=== PATIENT | male | born 1955 ===

== ENCOUNTER 2018-01-14 06:15 | Day surgery (SDC) | payer OTHER, SELFPAY ==
[~2018-01-14] VITALS: Ht 172.7 cm; Wt 103.4 kg
[~2018-01-14 06:15] MED LIST: AMOCLA875; Aspir 8181 MG; BENAML10/2 PO; CETI10; CIPR500; ESCI20 PO; ESCI5; GUAI600T33; GUAI600T33 PO; LORA.5; LORA.5 PO; LORA1; Lotrel 10-20 M1 EACH PO; METO25ER PO; MONT10T; NAPR220 PO; PROBIOTIC1 EAC1; Percocet 5-3251 EACH PO; TRAM50 PO; TRIA55OI; [UNRECOGNIZED DRUG - REMARK]
== END 2018-01-14 09:39 | disposition home or self-care (01) ==
LOC: ORSCMMR 06:15 → ORD 07:30 → ORSCMMR 07:30
PROVIDERS: Surgery
PROC: 0JH60WZ Insertion of Totally Implantable Vascular Access Device into Chest Subcutaneous Tissue and Fascia, Open Approach (ICD-10-PCS; principal; 2018-01-14 07:30)
DX: C67.8 Malignant neoplasm of overlapping sites of bladder (principal); C77.5 Secondary and unspecified malignant neoplasm of intrapelvic lymph nodes; C79.51 Secondary malignant neoplasm of bone; I10 Essential (primary) hypertension; E78.5 Hyperlipidemia, unspecified; F41.9 Anxiety disorder, unspecified; Z79.899 Other long term (current) drug therapy
CPT/HCPCS: 77001; C1788; J0690; J1100; J1642; J2001; J2250; J2405; J7120

== ENCOUNTER 2018-03-12 18:24 | Inpatient (IN) | payer OTHER, SELFPAY ==
[~2018-03-12] VITALS: Ht 177.8 cm; Wt 101.2 kg
[2018-03-12 19:10] LABS: Calcium, Ionized (POC) 0.73 mmol/L (1.10-1.46); Chloride (POC) 95 mmol/L (98-108); Creatinine (POC) 1.2 mg/dL (0.8-1.3); Glucose (ISTAT POC) 95 mg/dL (70-99); Hemoglobin (POC) 9.5 g/dL (13.5-17.5); Potassium (POC) 4.2 mmol/L (3.5-5.5); Sodium (POC) 138 mmol/L (135-148); Total CO2 (POC) 28 mmol/L (21-32)
[2018-03-12] MEDS ORDERED: [UNRECOGNIZED DRUG - REMARK] BOTHEYES (22:47)
[2018-03-13 05:54] LABS: Anion Gap 8 mmol/L (6-16); Blood Urea Nitrogen 21 mg/dL (8-24); Bun/Creatinine Ratio 22.2 (12.0-20.0); CO2, Blood 27 mmol/L (21-32); Calcium, Blood 6.1 mg/dL (8.5-10.1); Chloride, Blood 104 mmol/L (98-108); Creatinine, Blood 0.95 mg/dL (0.60-1.20); Glomerular Filtration Rate >60 (60-); Glucose, Blood 97 mg/dL (70-99); Potassium, Blood 4.3 mmol/L (3.5-5.5); Sodium, Blood 139 mmol/L (136-145)
[2018-03-13 06:44] LABS: Magnesium, Blood 1.7 mg/dL (1.6-2.4)
[2018-03-13 06:49] LABS: Alanine Aminotransfer (ALT/SGP 21 U/L (12-78); Albumin, Blood 2.6 g/dL (3.4-5.0); Albumin/Globulin Ratio 0.6 (0.8-1.8); Alk Phos 95 U/L (50-136); Anion Gap 7 mmol/L (6-16); Aspartate Aminotrans (AST/SGOT 18 U/L (12-37); Bilirubin, Total 0.2 mg/dL (0.1-1.0); Blood Urea Nitrogen 20 mg/dL (8-24); Bun/Creatinine Ratio 21.3 (12.0-20.0); CO2, Blood 29 mmol/L (21-32); Calcium, Blood 5.8 mg/dL (8.5-10.1); Chloride, Blood 105 mmol/L (98-108); Creatinine, Blood 0.94 mg/dL (0.60-1.20); Globulin, Blood 4.1 g/dL (2.2-4.0); Glomerular Filtration Rate >60 (60-); Glucose, Blood 100 mg/dL (70-99); Potassium, Blood 4.4 mmol/L (3.5-5.5); Sodium, Blood 141 mmol/L (136-145); Total Protein, Blood 6.7 g/dL (6.4-8.2)
[2018-03-13 09:13] LABS: RETIC HGB EQUIVALENT 38.1 pg (28.20-36.60); RETICULOCYTE COUNT PERCENT 0.29 % (0.50-2.50)
[2018-03-14 04:52] LABS: Hematocrit 26.9 % (37.0-53.0); Hemoglobin 8.5 g/dL (13.5-17.5)
[2018-03-14 05:32] LABS: Alanine Aminotransfer (ALT/SGP 19 U/L (12-78); Albumin, Blood 2.6 g/dL (3.4-5.0); Albumin/Globulin Ratio 0.6 (0.8-1.8); Alk Phos 105 U/L (50-136); Anion Gap 6 mmol/L (6-16); Aspartate Aminotrans (AST/SGOT 18 U/L (12-37); Bilirubin, Total 0.3 mg/dL (0.1-1.0); Blood Urea Nitrogen 25 mg/dL (8-24); Bun/Creatinine Ratio 26.3 (12.0-20.0); CO2, Blood 28 mmol/L (21-32); Calcium, Blood 6.8 mg/dL (8.5-10.1); Chloride, Blood 105 mmol/L (98-108); Creatinine, Blood 0.95 mg/dL (0.60-1.20); Globulin, Blood 4.4 g/dL (2.2-4.0); Glomerular Filtration Rate >60 (60-); Glucose, Blood 104 mg/dL (70-99); Magnesium, Blood 1.8 mg/dL (1.6-2.4); Potassium, Blood 4.4 mmol/L (3.5-5.5); Sodium, Blood 139 mmol/L (136-145)
[2018-03-14] MEDS ORDERED: CALCIUM 600 +1 EA11 PO (17:26)
[2018-03-14] MEDS ORDERED: Ferrous Sulfat325 M2 PO (17:27)
== END 2018-03-14 17:58 | disposition home or self-care (01) | DRG 641 ==
LOC: ER 18:24 → MEDS 20:30 → ENPENDDIS 03-14 17:35 → MEDS 03-14 17:58
PROVIDERS: Family Medicine; Hospitalist; Physician Assistant
DX: E83.51 Hypocalcemia (principal); E83.42 Hypomagnesemia; D64.9 Anemia, unspecified; I10 Essential (primary) hypertension; C61 Malignant neoplasm of prostate; C67.9 Malignant neoplasm of bladder, unspecified; M79.89 Other specified soft tissue disorders; M79.605 Pain in left leg; F17.200 Nicotine dependence, unspecified, uncomplicated; Z92.21 Personal history of antineoplastic chemotherapy; Z79.899 Other long term (current) drug therapy; Z93.3 Colostomy status
CPT/HCPCS: 36415; 80047; 80048; 80053; 82310; 82330; 83735; 85014; 85018; 85045; 93005; 93010; 93971; 96365; 99285-25; J0610; J3475; J7030

== ENCOUNTER 2018-03-26 11:44 | Emergency (ER) | payer OTHER, SELFPAY ==
[~2018-03-26] VITALS: Ht 175.3 cm; Wt 99.8 kg
[~2018-03-26 11:44] MED LIST changes: +CALCIUM 600 +1 EA11 PO; +Ferrous Sulfat325 M2 PO; +[UNRECOGNIZED DRUG - REMARK] BOTHEYES
[2018-03-26 12:37] LABS: BASOPHILS ABSOLUTE AUTO 0.03 K/mm3 (0.00-0.23); BASOPHILS PERCENT AUTO 0 % (0-2); EOSINOPHILS ABSOLUTE AUTO 0.15 K/mm3 (0.00-0.68); EOSINOPHILS PERCENT AUTO 2 % (0-6); Hematocrit 32.7 % (37.0-53.0); Hemoglobin 10.1 g/dL (13.5-17.5); IMMATURE GRAN ABSOLUTE AUTO 0.03 K/mm3 (0.00-0.10); IMMATURE GRAN PERCENT AUTO 0 % (0-1); LYMPHOCYTES ABSOLUTE AUTO 1.73 K/mm3 (0.84-5.20); LYMPHOCYTES PERCENT AUTO 24 % (21-46); MONOCYTES ABSOLUTE AUTO 0.69 K/mm3 (0.16-1.47); MONOCYTES PERCENT AUTO 10 % (4-13); Mean Corpuscular HGB 29.4 pg (26.0-34.0); Mean Corpuscular HGB Conc 30.9 g/dL (31.5-36.5); Mean Corpuscular Volume 95 fL (80-100); Mean Platelet Volume 9.5 fL (9.1-12.4); NEUTROPHILS ABSOLUTE AUTO 4.53 K/mm3 (1.96-9.15); NEUTROPHILS PERCENT AUTO 63 % (41-73); Platelet Count 421 K/mm3 (150-400); RDW Coefficient Variation 15.6 % (11.7-14.2); RDW Standard Deviation 54.2 fL (35.1-46.3); Red Blood Cell Count 3.44 M/mm3 (4.30-5.90); White Blood Cell Count 7.16 K/mm3 (4.00-11.30)
[2018-03-26 13:02] LABS: Alanine Aminotransfer (ALT/SGP 17 U/L (12-78); Albumin, Blood 3.1 g/dL (3.4-5.0); Albumin/Globulin Ratio 0.7 (0.8-1.8); Alk Phos 118 U/L (50-136); Anion Gap 9 mmol/L (6-16); Aspartate Aminotrans (AST/SGOT 12 U/L (12-37); Bilirubin, Total 0.3 mg/dL (0.1-1.0); Blood Urea Nitrogen 24 mg/dL (8-24); Bun/Creatinine Ratio 24.9 (12.0-20.0); CO2, Blood 26 mmol/L (21-32); Calcium, Blood 8.5 mg/dL (8.5-10.1); Chloride, Blood 107 mmol/L (98-108); Creatinine, Blood 0.96 mg/dL (0.60-1.20); Globulin, Blood 4.4 g/dL (2.2-4.0); Glomerular Filtration Rate >60 (60-); Glucose, Blood 120 mg/dL (70-99); Potassium, Blood 3.9 mmol/L (3.5-5.5); Sodium, Blood 142 mmol/L (136-145); Total Protein, Blood 7.5 g/dL (6.4-8.2); Troponin I <0.015 ng/mL (0.000-0.040)
== END 2018-03-26 14:30 | disposition home or self-care (01) ==
LOC: ER 11:44
PROVIDERS: Internal Medicine
DX: I49.3 Ventricular premature depolarization (principal); D64.9 Anemia, unspecified; I10 Essential (primary) hypertension; E78.5 Hyperlipidemia, unspecified; F32.9 Major depressive disorder, single episode, unspecified
CPT/HCPCS: 36415; 71046; 80053; 84484; 85025; 93005; 93010; 99285-25

== ENCOUNTER 2018-11-02 00:42 | Emergency (ER) | payer OTHER ==
[~2018-11-02] VITALS: Ht 177.8 cm; Wt 102.1 kg
[2018-11-02 02:39] LABS: Influenza A Negative (NEGATIVE); Influenza B Negative (NEGATIVE)
[2018-11-02 02:44] LABS: BASOPHILS ABSOLUTE AUTO 0.02 K/mm3 (0.00-0.23); BASOPHILS PERCENT AUTO 0 % (0-2); EOSINOPHILS ABSOLUTE AUTO 0.14 K/mm3 (0.00-0.68); EOSINOPHILS PERCENT AUTO 1 % (0-6); Hematocrit 25.8 % (37.0-53.0); Hemoglobin 7.8 g/dL (13.5-17.5); IMMATURE GRAN ABSOLUTE AUTO 0.08 K/mm3 (0.00-0.10); IMMATURE GRAN PERCENT AUTO 1 % (0-1); LYMPHOCYTES ABSOLUTE AUTO 1.42 K/mm3 (0.84-5.20); LYMPHOCYTES PERCENT AUTO 12 % (21-46); MONOCYTES ABSOLUTE AUTO 2.07 K/mm3 (0.16-1.47); MONOCYTES PERCENT AUTO 18 % (4-13); Mean Corpuscular HGB 28.9 pg (26.0-34.0); Mean Corpuscular HGB Conc 30.2 g/dL (31.5-36.5); Mean Corpuscular Volume 96 fL (80-100); Mean Platelet Volume 10.6 fL (9.1-12.4); NEUTROPHILS ABSOLUTE AUTO 8.09 K/mm3 (1.96-9.15); NEUTROPHILS PERCENT AUTO 68 % (41-73); NRBC ABSOLUTE 0.04 K/mm3 (0.00-0.02); NRBC Auto 0.3 /100 WBC (0.0-0.2); Platelet Count 69 K/mm3 (150-400); RDW Coefficient Variation 15.9 % (11.7-14.2); RDW Standard Deviation 55.1 fL (35.1-46.3); White Blood Cell Count 11.82 K/mm3 (4.00-11.30)
[2018-11-02 03:01] LABS: Alanine Aminotransfer (ALT/SGP 21 U/L (12-78); Albumin, Blood 2.7 g/dL (3.4-5.0); Albumin/Globulin Ratio 0.8 (0.8-1.8); Alk Phos 129 U/L (50-136); Anion Gap 8 mmol/L (6-16); Aspartate Aminotrans (AST/SGOT 20 U/L (12-37); Bilirubin, Total 0.3 mg/dL (0.1-1.0); Blood Urea Nitrogen 24 mg/dL (8-24); Bun/Creatinine Ratio 20.9 (12.0-20.0); CO2, Blood 26 mmol/L (21-32); Calcium, Blood 7.7 mg/dL (8.5-10.1); Chloride, Blood 106 mmol/L (98-108); Creatinine, Blood 1.15 mg/dL (0.60-1.20); Globulin, Blood 3.6 g/dL (2.2-4.0); Glomerular Filtration Rate >60 (60-); Glucose, Blood 124 mg/dL (70-99); Potassium, Blood 3.6 mmol/L (3.5-5.5); Sodium, Blood 140 mmol/L (136-145); Total Protein, Blood 6.3 g/dL (6.4-8.2)
[2018-11-02 03:09] LABS: Source, Urine Catheter
[2018-11-02 03:11] LABS: Appearance, Urine Cloudy (Clear); Bilirubin, Urine Neg (Neg); Blood, Urine 5+ (Neg); Color, Urine Yellow (P-Yellow); Glucose Qualitative, Urine Neg (Neg); Ketones, Urine Neg (Neg); Leukocyte Esterase, Urine 3+ (Neg); Nitrite, Urine Neg (Neg); Protein, Urine 3+ (Neg); Specific Gravity, Urine 1.015 (1.003-1.022); Urobilinogen, Urine NORM (Normal)
[2018-11-02 03:19] LABS: Bacteria Many /hpf; Red Blood Cells, Urine 0-2 /hpf (0-2); Squamous Epithelial Cells Not Seen /hpf (Few)
== END 2018-11-02 05:05 | disposition home or self-care (01) ==
LOC: ER 00:42
PROVIDERS: Emergency Medicine
DX: N39.0 Urinary tract infection, site not specified (principal); D64.9 Anemia, unspecified; D69.6 Thrombocytopenia, unspecified; C67.9 Malignant neoplasm of bladder, unspecified; Z88.8 Allergy status to other drugs, medicaments and biological substances; Z79.899 Other long term (current) drug therapy; I10 Essential (primary) hypertension; E78.5 Hyperlipidemia, unspecified; F32.9 Major depressive disorder, single episode, unspecified
CPT/HCPCS: 36415; 80053; 81001; 85025; 87077; 87086; 87186; 87804; 96365; 99283-25; J0696

== ENCOUNTER 2018-12-22 21:27 | Emergency (ER) | payer OTHER ==
[~2018-12-22] VITALS: Ht 175.3 cm; Wt 99.8 kg
[2018-12-22 22:03] LABS: BASOPHILS ABSOLUTE AUTO 0.02 K/mm3 (0.00-0.23); BASOPHILS PERCENT AUTO 0 % (0-2); EOSINOPHILS ABSOLUTE AUTO 0.32 K/mm3 (0.00-0.68); EOSINOPHILS PERCENT AUTO 5 % (0-6); Hematocrit 26.3 % (37.0-53.0); Hemoglobin 7.9 g/dL (13.5-17.5); Mean Corpuscular HGB 26.9 pg (26.0-34.0); Mean Corpuscular Volume 90 fL (80-100); Mean Platelet Volume 8.9 fL (9.1-12.4); Platelet Count 436 K/mm3 (150-400); RDW Coefficient Variation 17.3 % (11.7-14.2); RDW Standard Deviation 55.8 fL (35.1-46.3); Red Blood Cell Count 2.94 M/mm3 (4.30-5.90); White Blood Cell Count 6.82 K/mm3 (4.00-11.30)
[2018-12-22 22:04] LABS: IMMATURE GRAN ABSOLUTE AUTO 0.02 K/mm3 (0.00-0.10); IMMATURE GRAN PERCENT AUTO 0 % (0-1); LYMPHOCYTES ABSOLUTE AUTO 1.18 K/mm3 (0.84-5.20); LYMPHOCYTES PERCENT AUTO 17 % (21-46); MONOCYTES ABSOLUTE AUTO 0.07 K/mm3 (0.16-1.47); MONOCYTES PERCENT AUTO 1 % (4-13); NEUTROPHILS ABSOLUTE AUTO 5.21 K/mm3 (1.96-9.15); NEUTROPHILS PERCENT AUTO 76 % (41-73)
[2018-12-22 22:16] LABS: Albumin, Blood 2.7 g/dL (3.4-5.0); Albumin/Globulin Ratio 0.7 (0.8-1.8); Bilirubin, Total 0.4 mg/dL (0.1-1.0); Bun/Creatinine Ratio 16.7 (12.0-20.0); Calcium, Blood 7.5 mg/dL (8.5-10.1); Creatinine, Blood 1.44 mg/dL (0.60-1.20); Total Protein, Blood 6.7 g/dL (6.4-8.2)
[2018-12-22 23:37] LABS: Source, Urine Clean Catch
[2018-12-22 23:41] LABS: Bilirubin, Urine Neg (Neg); Blood, Urine 5+ (Neg); Glucose Qualitative, Urine Neg (Neg); Ketones, Urine Neg (Neg); Leukocyte Esterase, Urine 3+ (Neg); Nitrite, Urine Neg (Neg); Protein, Urine 4+ (Neg); Specific Gravity, Urine 1.015 (1.003-1.022); Urobilinogen, Urine NORM (Normal)
[2018-12-22 23:48] LABS: Appearance, Urine Cloudy (Clear); Color, Urine Yellow (P-Yellow)
[2018-12-22 23:56] LABS: Red Blood Cells, Urine TNTC /hpf (0-2); White Blood Cells, Urine TNTC /hpf (0-5)
[2018-12-22 23:57] LABS: Bacteria Mod /hpf; Squamous Epithelial Cells Not Seen /hpf (Few)
[2018-12-23] MEDS ORDERED: Keflex500 MG PO (01:45)
== END 2018-12-23 02:10 | disposition home or self-care (01) ==
LOC: ER 21:27
PROVIDERS: Emergency Medicine; Physician Assistant
DX: N39.0 Urinary tract infection, site not specified (principal); Z88.8 Allergy status to other drugs, medicaments and biological substances; Z79.899 Other long term (current) drug therapy; D64.9 Anemia, unspecified; I10 Essential (primary) hypertension; E78.5 Hyperlipidemia, unspecified; F32.9 Major depressive disorder, single episode, unspecified
CPT/HCPCS: 36415; 80053; 81001; 83605; 83735; 84145; 85025; 87040; 87077; 87086; 87186; 96361; 96365; 99283-25; J0696; J7030

== ENCOUNTER 2018-12-31 17:28 | Emergency (ER) | payer OTHER ==
[~2018-12-31] VITALS: Ht 177.8 cm; Wt 102.1 kg
[~2018-12-31 17:28] MED LIST changes: +Keflex500 MG PO
[2018-12-31] MEDS ORDERED: Norvasc10 MG PO (18:23)
[2018-12-31 18:27] LABS: BASOPHILS ABSOLUTE AUTO 0.03 K/mm3 (0.00-0.23); BASOPHILS PERCENT AUTO 0 % (0-2); EOSINOPHILS PERCENT AUTO 1 % (0-6); Hematocrit 25.5 % (37.0-53.0); Hemoglobin 7.8 g/dL (13.5-17.5); IMMATURE GRAN ABSOLUTE AUTO 0.33 K/mm3 (0.00-0.10); IMMATURE GRAN PERCENT AUTO 3 % (0-1); LYMPHOCYTES ABSOLUTE AUTO 1.51 K/mm3 (0.84-5.20); LYMPHOCYTES PERCENT AUTO 15 % (21-46); MONOCYTES PERCENT AUTO 2 % (4-13); Mean Corpuscular HGB 26.8 pg (26.0-34.0); Mean Corpuscular HGB Conc 30.6 g/dL (31.5-36.5); Mean Corpuscular Volume 88 fL (80-100); Mean Platelet Volume 9.2 fL (9.1-12.4); NEUTROPHILS ABSOLUTE AUTO 7.96 K/mm3 (1.96-9.15); NEUTROPHILS PERCENT AUTO 79 % (41-73); NRBC ABSOLUTE 0.03 K/mm3 (0.00-0.02); NRBC Auto 0.3 /100 WBC (0.0-0.2); Platelet Count 142 K/mm3 (150-400); RDW Coefficient Variation 17.4 % (11.7-14.2); Red Blood Cell Count 2.91 M/mm3 (4.30-5.90); White Blood Cell Count 10.13 K/mm3 (4.00-11.30)
[2018-12-31] MEDS ORDERED: OXYC5 PO (18:27)
[2018-12-31 18:43] LABS: Alanine Aminotransfer (ALT/SGP 44 U/L (12-78); Albumin, Blood 2.9 g/dL (3.4-5.0); Albumin/Globulin Ratio 0.7 (0.8-1.8); Alk Phos 204 U/L (50-136); Anion Gap 4 mmol/L (6-16); Aspartate Aminotrans (AST/SGOT 27 U/L (12-37); Bilirubin, Total 0.5 mg/dL (0.1-1.0); Blood Urea Nitrogen 18 mg/dL (8-24); Bun/Creatinine Ratio 18.5 (12.0-20.0); CO2, Blood 31 mmol/L (21-32); Calcium, Blood 8.3 mg/dL (8.5-10.1); Chloride, Blood 103 mmol/L (98-108); Creatinine, Blood 0.97 mg/dL (0.60-1.20); Globulin, Blood 4.2 g/dL (2.2-4.0); Glomerular Filtration Rate >60 (60-); Glucose, Blood 120 mg/dL (70-99); Potassium, Blood 3.8 mmol/L (3.5-5.5); Sodium, Blood 138 mmol/L (136-145); Total Protein, Blood 7.1 g/dL (6.4-8.2)
[2018-12-31 18:45] LABS: International Normalized Ratio 1.01; Prothrombin Time Results 10.7 Sec (9.7-11.5)
[2018-12-31] MEDS ORDERED: Percocet 5-3251 EACH PO (19:21)
[2018-12-31] MEDS ORDERED: XARELTO15 MG PO (19:21)
== END 2018-12-31 19:53 | disposition home or self-care (01) ==
LOC: ER 17:28
PROVIDERS: Emergency Medicine
DX: I82.401 Acute embolism and thrombosis of unspecified deep veins of right lower extremity (principal); I10 Essential (primary) hypertension; F32.9 Major depressive disorder, single episode, unspecified; E78.5 Hyperlipidemia, unspecified; Z85.51 Personal history of malignant neoplasm of bladder; D64.9 Anemia, unspecified; Z85.46 Personal history of malignant neoplasm of prostate
CPT/HCPCS: 36415; 80053; 85025; 85610; 85730; 93005; 93010; 93971; 99284-25

== ENCOUNTER 2019-01-07 07:44 | Day surgery (SDC) | payer OTHER ==
[~2019-01-07 07:44] MED LIST changes: +Norvasc10 MG PO; +OXYC5 PO; +XARELTO15 MG PO
[2019-01-07] MEDS ORDERED: LEVOFLOXACIN750 MG PO (14:07)
[2019-01-07] MEDS ORDERED: Coumadin2 MG PO (14:08)
== END 2019-01-07 16:00 | disposition home or self-care (01) ==
LOC: ATC 07:44
DX: C22.8 Malignant neoplasm of liver, primary, unspecified as to type (principal); C67.8 Malignant neoplasm of overlapping sites of bladder; I10 Essential (primary) hypertension; F41.9 Anxiety disorder, unspecified; E78.5 Hyperlipidemia, unspecified; Z88.8 Allergy status to other drugs, medicaments and biological substances; Z87.891 Personal history of nicotine dependence; Z79.899 Other long term (current) drug therapy; D63.0 Anemia in neoplastic disease; C77.5 Secondary and unspecified malignant neoplasm of intrapelvic lymph nodes; C79.51 Secondary malignant neoplasm of bone
CPT/HCPCS: 36430; 86850; 86900; 86901; 86923; J1642; J7050; P9016

== ENCOUNTER 2019-01-17 10:06 | Emergency (ER) | payer OTHER ==
[~2019-01-17] VITALS: Ht 175.3 cm; Wt 104.3 kg
[~2019-01-17 10:06] MED LIST changes: +Coumadin2 MG PO; +LEVOFLOXACIN750 MG PO
[2019-01-17 12:33] LABS: BASOPHILS ABSOLUTE AUTO 0.03 K/mm3 (0.00-0.23); BASOPHILS PERCENT AUTO 0 % (0-2); EOSINOPHILS ABSOLUTE AUTO 0.01 K/mm3 (0.00-0.68); EOSINOPHILS PERCENT AUTO 0 % (0-6); Hematocrit 25.4 % (37.0-53.0); Hemoglobin 7.7 g/dL (13.5-17.5); IMMATURE GRAN ABSOLUTE AUTO 0.14 K/mm3 (0.00-0.10); IMMATURE GRAN PERCENT AUTO 1 % (0-1); LYMPHOCYTES ABSOLUTE AUTO 0.97 K/mm3 (0.84-5.20); LYMPHOCYTES PERCENT AUTO 9 % (21-46); MONOCYTES ABSOLUTE AUTO 1.34 K/mm3 (0.16-1.47); MONOCYTES PERCENT AUTO 13 % (4-13); Mean Corpuscular HGB 26.3 pg (26.0-34.0); Mean Corpuscular HGB Conc 30.3 g/dL (31.5-36.5); Mean Corpuscular Volume 87 fL (80-100); Mean Platelet Volume 8.4 fL (9.1-12.4); NEUTROPHILS ABSOLUTE AUTO 7.79 K/mm3 (1.96-9.15); NEUTROPHILS PERCENT AUTO 76 % (41-73); NRBC ABSOLUTE 0.02 K/mm3 (0.00-0.02); NRBC Auto 0.2 /100 WBC (0.0-0.2); Platelet Count 535 K/mm3 (150-400); RDW Coefficient Variation 17.9 % (11.7-14.2); RDW Standard Deviation 56.8 fL (35.1-46.3); Red Blood Cell Count 2.93 M/mm3 (4.30-5.90); White Blood Cell Count 10.28 K/mm3 (4.00-11.30)
[2019-01-17 12:45] LABS: International Normalized Ratio 2.58; Prothrombin Time Results 25.1 Sec (9.7-11.5)
[2019-01-17 12:47] LABS: Alanine Aminotransfer (ALT/SGP 14 U/L (12-78); Albumin, Blood 2.3 g/dL (3.4-5.0); Albumin/Globulin Ratio 0.5 (0.8-1.8); Alk Phos 147 U/L (50-136); Anion Gap 5 mmol/L (6-16); Aspartate Aminotrans (AST/SGOT 18 U/L (12-37); Bilirubin, Total 0.3 mg/dL (0.1-1.0); Blood Urea Nitrogen 20 mg/dL (8-24); Bun/Creatinine Ratio 20.3 (12.0-20.0); CO2, Blood 31 mmol/L (21-32); Calcium, Blood 8.6 mg/dL (8.5-10.1); Chloride, Blood 102 mmol/L (98-108); Creatinine, Blood 0.98 mg/dL (0.60-1.20); Globulin, Blood 4.6 g/dL (2.2-4.0); Glomerular Filtration Rate >60 (60-); Glucose, Blood 143 mg/dL (70-99); Potassium, Blood 3.9 mmol/L (3.5-5.5); Sodium, Blood 138 mmol/L (136-145); Total Protein, Blood 6.9 g/dL (6.4-8.2); Troponin I <0.015 ng/mL (0.000-0.040)
[2019-01-17] MEDS ORDERED: LIDO700A20 TOP (13:40)
== END 2019-01-17 17:44 | disposition home or self-care (01) ==
LOC: ER 10:06
PROVIDERS: Emergency Medicine
DX: C61 Malignant neoplasm of prostate (principal); C67.9 Malignant neoplasm of bladder, unspecified; R06.00 Dyspnea, unspecified; I82.401 Acute embolism and thrombosis of unspecified deep veins of right lower extremity; D64.9 Anemia, unspecified; I10 Essential (primary) hypertension; E78.5 Hyperlipidemia, unspecified; F32.9 Major depressive disorder, single episode, unspecified; Z88.8 Allergy status to other drugs, medicaments and biological substances; Z79.01 Long term (current) use of anticoagulants; Z79.899 Other long term (current) drug therapy
CPT/HCPCS: 36415; 36430; 71260; 80053; 84484; 85025; 85610; 85730; 86850; 86900; 86901; 86923; 93005; 93010; 96374-59; 99285-25; J2405; J3010; J7030; P9016; Q9967

== ENCOUNTER → 2019-01-23 | Outpatient (CLI) | payer OTHER ==
[~2019-01-23] MED LIST changes: +ACET325 PO; +BISA5EC PO; +CEPH500 PO; +FERSU300 PO; +FLUC200 PO; +FURO20 PO; +FUROSEMIDE20 MG PO; +GAVILAX17 GM PO; +LIDO700A20 TOP; +LIDOCAINE PAIN1 EACH TOP; +MEGESTROL400 MG/10 PO; +METO10 PO; +OMEP20ER PO; +ONDA8 PO; +OXYC10ER PO; +POTA10T PO; +SENNA-TIME S T1 EACH PO
== END ==
LOC: LAB 17:58 → LAB SHORT 17:58
DX: N39.0 Urinary tract infection, site not specified (principal)
CPT/HCPCS: 87077; 87086; 87186

== ENCOUNTER 2019-02-19 08:02 | Day surgery (SDC) | payer OTHER ==
[~2019-02-19 08:02] MED LIST changes: -ACET325 PO; -BISA5EC PO; -CEPH500 PO; -FERSU300 PO; -FLUC200 PO; -FURO20 PO; -FUROSEMIDE20 MG PO; -GAVILAX17 GM PO; -LIDOCAINE PAIN1 EACH TOP; -MEGESTROL400 MG/10 PO; -METO10 PO; -OMEP20ER PO; -ONDA8 PO; -OXYC10ER PO; -POTA10T PO; -SENNA-TIME S T1 EACH PO
== END 2019-02-19 10:15 | disposition home or self-care (01) ==
LOC: ATC 08:02 → LAB 08:02 → ATC 10:15 → LAB 17:33
DX: C67.8 Malignant neoplasm of overlapping sites of bladder (principal)
CPT/HCPCS: 36430; 86850; 86900; 86901; 86923; J1642; J7050; P9016

== ENCOUNTER 2019-02-22 19:13 | Emergency (ER) | payer OTHER ==
[~2019-02-22] VITALS: Ht 177.8 cm; Wt 98.9 kg
[2019-02-22] MEDS ORDERED: FURO20 PO (20:11)
[2019-02-22] MEDS ORDERED: POTA10T PO (20:12)
[2019-02-22] MEDS ORDERED: SENNA-TIME S T1 EACH PO (20:12)
[2019-02-22] MEDS ORDERED: ONDA8 PO (20:13)
[2019-02-22] MEDS ORDERED: OMEP20ER PO (20:13)
[2019-02-22 21:12] LABS: BASOPHILS ABSOLUTE AUTO 0.02 K/mm3 (0.00-0.23); BASOPHILS PERCENT AUTO 0 % (0-2); EOSINOPHILS ABSOLUTE AUTO 0.02 K/mm3 (0.00-0.68); EOSINOPHILS PERCENT AUTO 0 % (0-6); Hematocrit 25.2 % (37.0-53.0); Hemoglobin 7.5 g/dL (13.5-17.5); IMMATURE GRAN ABSOLUTE AUTO 0.09 K/mm3 (0.00-0.10); IMMATURE GRAN PERCENT AUTO 1 % (0-1); LYMPHOCYTES ABSOLUTE AUTO 0.66 K/mm3 (0.84-5.20); LYMPHOCYTES PERCENT AUTO 7 % (21-46); MONOCYTES ABSOLUTE AUTO 1.16 K/mm3 (0.16-1.47); MONOCYTES PERCENT AUTO 12 % (4-13); Mean Corpuscular HGB Conc 29.8 g/dL (31.5-36.5); Mean Corpuscular Volume 81 fL (80-100); Mean Platelet Volume 9.2 fL (9.1-12.4); NEUTROPHILS ABSOLUTE AUTO 7.45 K/mm3 (1.96-9.15); NEUTROPHILS PERCENT AUTO 79 % (41-73); Platelet Count 310 K/mm3 (150-400); RDW Coefficient Variation 20.8 % (11.7-14.2); Red Blood Cell Count 3.13 M/mm3 (4.30-5.90)
[2019-02-22 21:24] LABS: Alanine Aminotransfer (ALT/SGP 9 U/L (12-78); Albumin/Globulin Ratio 0.4 (0.8-1.8); Alk Phos 146 U/L (50-136); Anion Gap 8 mmol/L (6-16); Aspartate Aminotrans (AST/SGOT 20 U/L (12-37); Bilirubin, Total 0.5 mg/dL (0.1-1.0); Blood Urea Nitrogen 20 mg/dL (8-24); Bun/Creatinine Ratio 20.6 (12.0-20.0); CO2, Blood 29 mmol/L (21-32); Calcium, Blood 7.8 mg/dL (8.5-10.1); Chloride, Blood 102 mmol/L (98-108); Creatinine, Blood 0.97 mg/dL (0.60-1.20); Globulin, Blood 5.1 g/dL (2.2-4.0); Glomerular Filtration Rate >60 (60-); Glucose, Blood 127 mg/dL (70-99); Potassium, Blood 3.5 mmol/L (3.5-5.5); Sodium, Blood 139 mmol/L (136-145); Total Protein, Blood 7.1 g/dL (6.4-8.2)
[2019-02-22 21:35] LABS: Source, Urine Urostomy Bag
[2019-02-22 21:37] LABS: Bilirubin, Urine Neg (Neg); Blood, Urine 4+ (Neg); Glucose Qualitative, Urine Neg (Neg); Ketones, Urine 1+ (Neg); Leukocyte Esterase, Urine 3+ (Neg); Nitrite, Urine Neg (Neg); Protein, Urine 2+ (Neg); Urobilinogen, Urine 1+ (Normal); pH, Urine 6.5 (5.0-8.0)
[2019-02-22 21:43] LABS: Appearance, Urine Hazy (Clear); Color, Urine Amber (P-Yellow)
[2019-02-22 21:44] LABS: Bacteria Many /hpf; Mucus Light (0-Heavy); Squamous Epithelial Cells Not Seen /hpf (Few); White Blood Cells, Urine 50-100 /hpf (0-5)
[2019-02-22 21:45] LABS: Hyaline Casts 0-2 /lpf (0-2)
[2019-02-22] MEDS ORDERED: CEPH500 PO (23:52)
== END 2019-02-23 00:20 | disposition home or self-care (01) ==
LOC: ER 19:13
PROVIDERS: Emergency Medicine
DX: N12 Tubulo-interstitial nephritis, not specified as acute or chronic (principal); D64.9 Anemia, unspecified; R41.0 Disorientation, unspecified; I10 Essential (primary) hypertension; E78.5 Hyperlipidemia, unspecified; F32.9 Major depressive disorder, single episode, unspecified; Z88.8 Allergy status to other drugs, medicaments and biological substances; Z79.899 Other long term (current) drug therapy; Z79.01 Long term (current) use of anticoagulants
CPT/HCPCS: 36415; 70450; 71046; 80053; 81001; 83605; 85025; 87040; 87077; 87086; 87186; 93005; 93010; 96365; 96366; 99285-25; J0696

== ENCOUNTER 2019-03-07 14:10 | Emergency (ER) | payer OTHER ==
[~2019-03-07] VITALS: Ht 177.8 cm; Wt 92.1 kg
[~2019-03-07 14:10] MED LIST changes: +CEPH500 PO; +FURO20 PO; +OMEP20ER PO; +ONDA8 PO; +POTA10T PO; +SENNA-TIME S T1 EACH PO
[2019-03-07 14:48] LABS: BASOPHILS ABSOLUTE AUTO 0.02 K/mm3 (0.00-0.23); BASOPHILS PERCENT AUTO 0 % (0-2); EOSINOPHILS ABSOLUTE AUTO 0.03 K/mm3 (0.00-0.68); EOSINOPHILS PERCENT AUTO 0 % (0-6); Hematocrit 24.1 % (37.0-53.0); IMMATURE GRAN ABSOLUTE AUTO 0.09 K/mm3 (0.00-0.10); IMMATURE GRAN PERCENT AUTO 1 % (0-1); LYMPHOCYTES ABSOLUTE AUTO 0.66 K/mm3 (0.84-5.20); LYMPHOCYTES PERCENT AUTO 6 % (21-46); MONOCYTES ABSOLUTE AUTO 0.94 K/mm3 (0.16-1.47); MONOCYTES PERCENT AUTO 9 % (4-13); Mean Corpuscular HGB 23.6 pg (26.0-34.0); Mean Corpuscular Volume 81 fL (80-100); Mean Platelet Volume 8.9 fL (9.1-12.4); NEUTROPHILS ABSOLUTE AUTO 8.55 K/mm3 (1.96-9.15); NEUTROPHILS PERCENT AUTO 83 % (41-73); NRBC ABSOLUTE 0.03 K/mm3 (0.00-0.02); NRBC Auto 0.3 /100 WBC (0.0-0.2); Platelet Count 382 K/mm3 (150-400); RDW Coefficient Variation 21.7 % (11.7-14.2); RDW Standard Deviation 63.6 fL (35.1-46.3); Red Blood Cell Count 2.96 M/mm3 (4.30-5.90); White Blood Cell Count 10.29 K/mm3 (4.00-11.30)
[2019-03-07 15:00] LABS: International Normalized Ratio 1.54; Prothrombin Time Results 15.7 Sec (9.7-11.5)
[2019-03-07 15:05] LABS: Albumin/Globulin Ratio 0.4 (0.8-1.8); Bilirubin, Total 0.4 mg/dL (0.1-1.0); Bun/Creatinine Ratio 17.3 (12.0-20.0); Calcium, Blood 8.1 mg/dL (8.5-10.1); Creatinine, Blood 1.33 mg/dL (0.60-1.20); Globulin, Blood 5.5 g/dL (2.2-4.0); Potassium, Blood 4.4 mmol/L (3.5-5.5); Total Protein, Blood 7.5 g/dL (6.4-8.2)
[2019-03-07 15:57] LABS: Source, Urine Clean Catch
[2019-03-07 16:05] LABS: Bilirubin, Urine Neg (Neg); Blood, Urine Neg (Neg); Glucose Qualitative, Urine Neg (Neg); Ketones, Urine Neg (Neg); Leukocyte Esterase, Urine 1+ (Neg); Nitrite, Urine Neg (Neg); Protein, Urine 2+ (Neg); Specific Gravity, Urine 1.015 (1.003-1.022); Urobilinogen, Urine 1+ (Normal)
[2019-03-07 16:12] LABS: Appearance, Urine Turbid (Clear); Color, Urine Yellow (P-Yellow)
[2019-03-07 16:18] LABS: Red Blood Cells, Urine 0-2 /hpf (0-2); Triple Phosphate Crystals Mod /hpf
[2019-03-07 16:19] LABS: Bacteria Many /hpf; Squamous Epithelial Cells Not Seen /hpf (Few)
[2019-03-07] MEDS ORDERED: CEPH500 PO (16:42)
== END 2019-03-07 17:46 | disposition home or self-care (01) ==
LOC: ER 14:10
PROVIDERS: Physician Assistant
DX: N39.0 Urinary tract infection, site not specified (principal); C61 Malignant neoplasm of prostate; C67.9 Malignant neoplasm of bladder, unspecified; D64.9 Anemia, unspecified; I10 Essential (primary) hypertension; F32.9 Major depressive disorder, single episode, unspecified; Z88.8 Allergy status to other drugs, medicaments and biological substances; Z79.01 Long term (current) use of anticoagulants; Z79.899 Other long term (current) drug therapy
CPT/HCPCS: 36415; 70450; 80053; 81001; 84484; 85025; 85610; 87086; 93005; 93010; 96361; 96365; 96375; 99285-25; J0696; J2405; J7030

== ENCOUNTER 2019-03-14 16:19 | Observation (INO) | payer OTHER ==
[~2019-03-14] VITALS: Ht 175.3 cm; Wt 91.3 kg
[2019-03-14 17:28] LABS: BASOPHILS ABSOLUTE AUTO 0.03 K/mm3 (0.00-0.23); BASOPHILS PERCENT AUTO 0 % (0-2); EOSINOPHILS ABSOLUTE AUTO 0.01 K/mm3 (0.00-0.68); EOSINOPHILS PERCENT AUTO 0 % (0-6); Hematocrit 21.8 % (37.0-53.0); Hemoglobin 6.3 g/dL (13.5-17.5); IMMATURE GRAN ABSOLUTE AUTO 0.08 K/mm3 (0.00-0.10); IMMATURE GRAN PERCENT AUTO 1 % (0-1); LYMPHOCYTES ABSOLUTE AUTO 0.52 K/mm3 (0.84-5.20); LYMPHOCYTES PERCENT AUTO 5 % (21-46); MONOCYTES ABSOLUTE AUTO 0.89 K/mm3 (0.16-1.47); MONOCYTES PERCENT AUTO 9 % (4-13); Mean Corpuscular HGB Conc 28.9 g/dL (31.5-36.5); Mean Corpuscular Volume 83 fL (80-100); Mean Platelet Volume 8.6 fL (9.1-12.4); NEUTROPHILS ABSOLUTE AUTO 8.38 K/mm3 (1.96-9.15); NEUTROPHILS PERCENT AUTO 85 % (41-73); NRBC ABSOLUTE 0.03 K/mm3 (0.00-0.02); NRBC Auto 0.3 /100 WBC (0.0-0.2); Platelet Count 341 K/mm3 (150-400); RDW Coefficient Variation 22.4 % (11.7-14.2); RDW Standard Deviation 66.8 fL (35.1-46.3); Red Blood Cell Count 2.63 M/mm3 (4.30-5.90); White Blood Cell Count 9.91 K/mm3 (4.00-11.30)
[2019-03-14 17:49] LABS: Alanine Aminotransfer (ALT/SGP 9 U/L (12-78); Albumin, Blood 1.7 g/dL (3.4-5.0); Albumin/Globulin Ratio 0.3 (0.8-1.8); Alk Phos 169 U/L (50-136); Anion Gap 4 mmol/L (6-16); Aspartate Aminotrans (AST/SGOT 20 U/L (12-37); Bilirubin, Total 0.5 mg/dL (0.1-1.0); Blood Urea Nitrogen 20 mg/dL (8-24); Bun/Creatinine Ratio 24.5 (12.0-20.0); CO2, Blood 29 mmol/L (21-32); Calcium, Blood 7.9 mg/dL (8.5-10.1); Chloride, Blood 103 mmol/L (98-108); Creatinine, Blood 0.82 mg/dL (0.60-1.20); Globulin, Blood 4.9 g/dL (2.2-4.0); Glomerular Filtration Rate >60 (60-); Glucose, Blood 125 mg/dL (70-99); Magnesium, Blood 1.8 mg/dL (1.6-2.4); Potassium, Blood 4.1 mmol/L (3.5-5.5); Sodium, Blood 136 mmol/L (136-145); Total Protein, Blood 6.6 g/dL (6.4-8.2)
[2019-03-14] MEDS ORDERED: OXYC5 PO (21:38)
[2019-03-14 23:46] LABS: IMMATURE RETIC FRACTION 36.2 % (2.3-16.0); RETICULOCYTE ABSOLUTE 0.0632 M/mm3 (0.0200-0.1100); RETICULOCYTE COUNT PERCENT 2.42 % (0.50-2.50)
[2019-03-14 23:58] LABS: International Normalized Ratio 0.92; Prothrombin Time Results 9.8 Sec (9.7-11.5)
[2019-03-15 00:07] LABS: Percent Saturation 18.9 % (20.0-50.0)
--- NOTE | 2019-03-15 02:56 | NUR ---
PCU ADMIT PT BROUGHT TO PCU RM 04 FROM THE ER BY YSABEL @ APPROX 0030 W/ PT'S ACCOMPANYING. PT C/O BACK PAIN, SLID OVER FROM ER YSABEL TO PCU BED BY 4 STAFF. PT BROUGHT TO UNIT W/ BLOOD TRANSFUSING VIA MEDIPORT, REPORTED BY ER TO BE 2ND UNIT PRBC'S ADMINISTERED. PT A&O X4. VSS. LUNG SOUNDS CLEAR, SPO2 > 92% ON RA. MONITOR SHOWS NSR/ST, HR 90-110. UROSTOMY TO RLQ DRAINING DARK YELLOW URINE. STOOL SAMPLE TO BE COLLECTED WHEN PT ABLE TO HAVE BM. PT CONCERNED ABOUT NOT TAKING COUMADIN DOSE FOR 03/14, CALL TO MD BRIGHT W/ CLARIFICATION FOR PT'S HOME COUMADIN W/ MD BRIGHT INSTRUCTING MED BE REEVALUATED AFTER STOOL SAMPLE OBTAINED/TESTED. WILL CONTINUE TO MONITOR AND PROVIDE CARE.
[2019-03-15 03:44] LABS: Hematocrit 26.4 % (37.0-53.0)
--- NOTE | 2019-03-15 06:23 | NUR ---
SHIFT SUMMARY PT A&O X4. VSS. PT RECEIVED 2 UNITS PRBC'S AND REPORTS "FEELING MUCH BETTER" THIS AM. PT ABLE TO AMBULATE TO BEDSIDE COMMODE THIS AM W/ 1 PERSON ASSIST W/OUT DIZZINESS. UROSTOMY IN PLACE DRAINING DARK YELLOW URINE. WILL CONTINUE TO MONITOR AND PROVIDE CARE UNTIL REPORT OFF TO DAY SHIFT RN.
[2019-03-15 14:12] LABS: Stool Occult Blood Guaiac 1 Neg (Neg)
[2019-03-15 16:06] LABS: Hematocrit 26.8 % (37.0-53.0); Hemoglobin 8.2 g/dL (13.5-17.5)
--- NOTE | 2019-03-15 17:41 | NUR ---
SHIFT SUMMARY PT PLEASANT, COOPERATIVE AND USES CALL LIGHT APPROX. PT REMAINS A&OX3. VITAL SIGNS STABLE. PT REPORTS FEELING BETTER THAN HE FELT PREVIOUSLY. PT ABLE TO REST OFF AND ON TODAY. PT REPOSITIONED IN BED NEEDED T/O THE DAY. ENCOURAGED PT TO MOVE HIMSELF IN BED RODRIGUEZ S POSSIBLE. UROSTOMY REMAINS IN PLACE, INTACT AND DRAINING. [facility] CONTINUES TO [facility] N.S[facility] AT TKO. [facility]. PT CURRENLTY UP IN SHOWER WITH PEER STAFF AND TOLERATING WELL. PEER STAFF TO ASSIST PT BACK TO BED. WILL CONTINUE TO MONITOR UNTIL HANDOFF OT NIGHTSHIFT RN
[2019-03-16 03:58] LABS: BASOPHILS ABSOLUTE AUTO 0.02 K/mm3 (0.00-0.23); BASOPHILS PERCENT AUTO 0 % (0-2); EOSINOPHILS ABSOLUTE AUTO 0.03 K/mm3 (0.00-0.68); EOSINOPHILS PERCENT AUTO 0 % (0-6); Hematocrit 25.9 % (37.0-53.0); Hemoglobin 7.9 g/dL (13.5-17.5); IMMATURE GRAN ABSOLUTE AUTO 0.08 K/mm3 (0.00-0.10); IMMATURE GRAN PERCENT AUTO 1 % (0-1); LYMPHOCYTES ABSOLUTE AUTO 0.79 K/mm3 (0.84-5.20); LYMPHOCYTES PERCENT AUTO 9 % (21-46); MONOCYTES ABSOLUTE AUTO 0.84 K/mm3 (0.16-1.47); MONOCYTES PERCENT AUTO 9 % (4-13); Mean Corpuscular HGB 24.7 pg (26.0-34.0); Mean Corpuscular HGB Conc 30.5 g/dL (31.5-36.5); Mean Corpuscular Volume 81 fL (80-100); Mean Platelet Volume 8.7 fL (9.1-12.4); NEUTROPHILS PERCENT AUTO 80 % (41-73); Platelet Count 317 K/mm3 (150-400); RDW Coefficient Variation 20.4 % (11.7-14.2); RDW Standard Deviation 59.7 fL (35.1-46.3); White Blood Cell Count 8.96 K/mm3 (4.00-11.30)
[2019-03-16 04:31] LABS: Alanine Aminotransfer (ALT/SGP 9 U/L (12-78); Albumin, Blood 1.7 g/dL (3.4-5.0); Albumin/Globulin Ratio 0.4 (0.8-1.8); Alk Phos 178 U/L (50-136); Anion Gap 8 mmol/L (6-16); Aspartate Aminotrans (AST/SGOT 18 U/L (12-37); Bilirubin, Total 0.6 mg/dL (0.1-1.0); Blood Urea Nitrogen 15 mg/dL (8-24); Bun/Creatinine Ratio 25.7 (12.0-20.0); CO2, Blood 26 mmol/L (21-32); Calcium, Blood 7.7 mg/dL (8.5-10.1); Chloride, Blood 106 mmol/L (98-108); Creatinine, Blood 0.58 mg/dL (0.60-1.20); Globulin, Blood 4.4 g/dL (2.2-4.0); Glomerular Filtration Rate >60 (60-); Glucose, Blood 99 mg/dL (70-99); Potassium, Blood 3.6 mmol/L (3.5-5.5); Sodium, Blood 140 mmol/L (136-145); Total Protein, Blood 6.1 g/dL (6.4-8.2)
--- NOTE | 2019-03-16 04:36 | NUR ---
SHIFT SUMMARY PT PLEASANT AND COOPERATIVE. A&O X4. VSS. PT PAINFUL W/ REPOSITIONING IN BED. PT DENYING NEED FOR PAIN MEDICATION. UROSTOMY DRAINING DARK YELLOW URINE. MEDIPORT INFUSING NS @ [facility]. PT NPO SINCE MIDNIGHT, AWAITING SCOPE IN AM. PT'S AT BEDSIDE T/O SHIFT.
--- NOTE | 2019-03-16 09:54 | NUR ---
PCU DAYSHIFT ASSUMED CARE OF PT APPROX. 0700. PT A&OX4. PT VITAL SIGNS STABLE. PT SLEEPY THIS MORNING BUT REMAISN ARROUSABLE. PT NPO AT THIS TIME FOR PROCEDURE TODAY. [facility] CONTINUES TO HAVE N.S. RUNNING AT TKO. UROSOTOMY IN PLACE, PATENT AND DRAINING INTO CATHETER BAG. REMAINS AT BEDSIDE. BED IN LOW POSITION, CALL LIGHT IN REACH AND PT DENIES ANY NEEDS WILL CONTINUE TO MONITOR .
--- NOTE | 2019-03-16 10:56 | NUR ---
INTO SDS ADMISSION STARTED TO UNIT
--- NOTE | 2019-03-16 11:05 | NUR ---
03/16/19 1105 Steven Deluna Bite Block PlacedPATIENT DETERMINED TO BE ASA APPROPRIATE FOR PROPOFOL SEDATION PRIOR TO START OF PROCEDURE BY .3-LEAD EKG REVIEWED WITH PHYSICIAN PRIOR TO START OF PROCEDURE.Patient to ENDO 1History, Chart, Medications and Allergies reviewed before start of procedure.MONITOR INTACT WITH CONTINUOUS PULSE OXIMETRY AND INTERMITTENT BP.Patient confirms NPO status and agrees with scheduled surgery.O2 VIA N/C INTACT THROUGHOUT SEDATION/PROCEDURE.
--- NOTE | 2019-03-16 12:57 | NUR ---
BACK TO UNIT PT BACK TO UNIT APPROX 1130 FROM SCOPE PROCEDURE. PT A&OX4. PT VITAL SIGNS STABLE. BEGAN MONITORING PER PROTOCOL. PT DENIES ANY PAIN OR NAUSEA AT THIS TIME. PT ABLE TO TOLERATE ORAL LIQUIDS. PT REPORTS FEELING SLEEPY. WILL CONTINUE TO MONITOR
--- NOTE | 2019-03-16 13:11 | NUR ---
PRB'S RECIEVED ORDER TO COMPLETED ONE UNIT PRBS. AWAITING BLOOD AT THIS TIME
--- NOTE | 2019-03-16 14:10 | NUR ---
BLOOD STARTED BLOOD STARTED APPROX. 1345. BEGAN MONITORING PT AND VITAL SIGNS PER PROTCOL. VITAL SIGNS STABLE. NO S/SX OF COMPLICATIONS FROM TRANSFUSION. PT REPROTS FEELING GOOD. NO CHANGES IN ASSESSMENT NOTED.
[2019-03-16 16:40] LABS: Hematocrit 28.7 % (37.0-53.0); Hemoglobin 8.9 g/dL (13.5-17.5)
--- NOTE | 2019-03-16 19:36 | NUR ---
SHIFT SUMMARY PT PLEASANT, COOPERATIVE AND USES CALL LIGHT APROPRIATELY. PT REMAINS A&OX4 BUT SLEEPY TODAY. PT SLEPT MOST OF DAY. REPROTS THIS IS NOT UNUSUAL FOR PT. PT VITAL SIGNS REMAIN STABLE. ASSESSMENT FINDINGS REMAIN UNCHANGED. UROSTOMY IN PLACE, PATENT AND DRAINING. [facility] RUNNING AT TKO. REMAINED AT BEDSIDE T/O SHIFT. PT CURRENTLY IN BED SLEEPING. BED IN LOW POSITION, CALL LIGHT IN REACH AND PT DENIES ANY NEEDS AT THIS TIME. WILL CONTINUE TO MONITOR UNTIL HANDOFF TO NIGHTSHIFT RN.
[2019-03-17 03:46] LABS: Hemoglobin 8.6 g/dL (13.5-17.5)
--- NOTE | 2019-03-17 04:52 | NUR ---
SHIFT SUMMARY PT A&O X4. VSS. MONITOR SHOWS ST, HR 100-110. UROSTOMY PATENT AND DRAINING YELLOW URINE. MEDIPORT CONTINUES TO INFUSE NS @ [facility]. NO EVENTS/CHANGES THIS SHIFT. PT'S SPOUSE AT BEDSIDE T/O SHIFT. WILL CONTINUE TO MONITOR AND PROVIDE CARE UNTIL REPORT OFF TO DAY SHIFT RN.
[2019-03-17] MEDS ORDERED: ACET325 PO (12:49)
[2019-03-17] MEDS ORDERED: BISA5EC PO (12:50)
[2019-03-17] MEDS ORDERED: FERSU300 PO (12:53)
[2019-03-17] MEDS ORDERED: FLUC200 PO (12:53)
--- NOTE | 2019-03-17 14:35 | NUR ---
DISCHARGE NOTE PT ALERT AND ORIENTED. DISCHARGE INSTRUCTIONS PROVIDED TO BOTH AND PATIENT. ALL QUESTIONS ANSWERED. NEW MEDICATIONS EXPLAINED TO PT. MEDIPORT DEACCESSED WITH HEPARIN FLUSH. PT TAKEN OUT BY WHEELCHAIR.
--- NOTE | 2019-03-17 14:35 | NUR ---
SHIFT SUMMARY PT ALERTC
--- NOTE | 2019-03-17 15:11 | NUR ---
Spiritual Care inital note: Met with Mr. Amanda and his rosalinda at bedside. Both report a strong rios and credit this for their endurance/hope. Isma can be difficult to understand at times, and his often translates. Both beleive they are winning the cancer sheppard. Isma appears quite frail. We spoke at length about the loss of Isma's mom 11 years ago. They remember me from that event. Isma is being discharged soon. Provided prayer for a miracle at their request. We have and easy rapport. Gave spouse my contact info at her request.
== END 2019-03-17 14:34 | disposition home or self-care (01) ==
LOC: ER 16:19 → PCU 16:20
PROVIDERS: Emergency Medicine; Family Medicine; Internal Medicine; Nurse Practitioner Acute Care; Student in an Organized Health Care Education/Training Program; ADMIT Family Medicine
PROC: 0DJ08ZZ Inspection of Upper Intestinal Tract, Via Natural or Artificial Opening Endoscopic (ICD-10-PCS; principal; 2019-03-16 10:30)
DX: D50.9 Iron deficiency anemia, unspecified (principal); B37.81 Candidal esophagitis; K31.7 Polyp of stomach and duodenum; K44.9 Diaphragmatic hernia without obstruction or gangrene; I10 Essential (primary) hypertension; F32.9 Major depressive disorder, single episode, unspecified; E78.5 Hyperlipidemia, unspecified; G89.29 Other chronic pain; M54.5 Low back pain; Z88.8 Allergy status to other drugs, medicaments and biological substances; Z79.899 Other long term (current) drug therapy; Z79.01 Long term (current) use of anticoagulants; Z87.11 Personal history of peptic ulcer disease; Z85.51 Personal history of malignant neoplasm of bladder; W18.30XA Fall on same level, unspecified, initial encounter
CPT/HCPCS: 36415; 36430; 72080; 72131; 80053; 82272; 82607; 82728; 82746; 83540; 83550; 83735; 85014; 85018; 85025; 85045; 85610; 86850; 86900; 86901; 86923; 96374; 96375; 97110; 97116; 97162; 97530; 99285-25; G0378; J1170; J1642; J2405; J2704; J7030; J7050; J7120; P9016

== ENCOUNTER 2019-03-26 19:12 | Inpatient (IN) | payer OTHER ==
[~2019-03-26] VITALS: Ht 177.8 cm; Wt 90.6 kg
[~2019-03-26 19:12] MED LIST changes: +ACET325 PO; +BISA5EC PO; +FERSU300 PO; +FLUC200 PO
[2019-03-26 19:37] LABS: BASOPHILS ABSOLUTE AUTO 0.02 K/mm3 (0.00-0.23); BASOPHILS PERCENT AUTO 0 % (0-2); EOSINOPHILS PERCENT AUTO 0 % (0-6); Hematocrit 32.3 % (37.0-53.0); Hemoglobin 9.8 g/dL (13.5-17.5); IMMATURE GRAN ABSOLUTE AUTO 0.11 K/mm3 (0.00-0.10); IMMATURE GRAN PERCENT AUTO 1 % (0-1); LYMPHOCYTES ABSOLUTE AUTO 0.44 K/mm3 (0.84-5.20); LYMPHOCYTES PERCENT AUTO 3 % (21-46); MONOCYTES PERCENT AUTO 7 % (4-13); Mean Corpuscular HGB 25.7 pg (26.0-34.0); Mean Corpuscular HGB Conc 30.3 g/dL (31.5-36.5); Mean Corpuscular Volume 85 fL (80-100); Mean Platelet Volume 8.6 fL (9.1-12.4); NEUTROPHILS ABSOLUTE AUTO 13.51 K/mm3 (1.96-9.15); NEUTROPHILS PERCENT AUTO 89 % (41-73); Platelet Count 413 K/mm3 (150-400); RDW Coefficient Variation 19.3 % (11.7-14.2); Red Blood Cell Count 3.82 M/mm3 (4.30-5.90); White Blood Cell Count 15.18 K/mm3 (4.00-11.30)
[2019-03-26 19:56] LABS: Alanine Aminotransfer (ALT/SGP 9 U/L (12-78); Albumin, Blood 1.6 g/dL (3.4-5.0); Albumin/Globulin Ratio 0.3 (0.8-1.8); Alk Phos 233 U/L (50-136); Anion Gap 9 mmol/L (6-16); Aspartate Aminotrans (AST/SGOT 24 U/L (12-37); Bilirubin, Total 0.9 mg/dL (0.1-1.0); Blood Urea Nitrogen 30 mg/dL (8-24); Bun/Creatinine Ratio 26.8 (12.0-20.0); CO2, Blood 28 mmol/L (21-32); Calcium, Blood 8.4 mg/dL (8.5-10.1); Chloride, Blood 99 mmol/L (98-108); Creatinine, Blood 1.12 mg/dL (0.60-1.20); Globulin, Blood 5.4 g/dL (2.2-4.0); Glomerular Filtration Rate >60 (60-); Glucose, Blood 164 mg/dL (70-99); Potassium, Blood 4.3 mmol/L (3.5-5.5); Sodium, Blood 136 mmol/L (136-145)
[2019-03-27 00:43] LABS: Prothrombin Time Results 59.3 Sec (9.7-11.5)
[2019-03-27 00:50] LABS: International Normalized Ratio 6.65
--- NOTE | 2019-03-27 01:38 | NUR ---
PT ARRIVAL Pt arrived to PCU at 0138 via gurney. pt unable to stand to transer so pt transferred via slider sheet with four staff for assistance. pt painful with transfer, repositioned to comfort. VSS. breathing easy and unlabored, denies SOB. RA. Sinus tach at 101. Pt in no apparent sign of distress. will continue to monitor and provide care per orders.
[2019-03-27] MEDS ORDERED: METO10 PO (02:17)
[2019-03-27 02:22] LABS: Source, Urine Urostomy Bag
[2019-03-27 02:25] LABS: Blood, Urine Neg (Neg); Glucose Qualitative, Urine Neg (Neg); Ketones, Urine 1+ (Neg); Leukocyte Esterase, Urine 2+ (Neg); Nitrite, Urine Pos (Neg); Protein, Urine 3+ (Neg); Specific Gravity, Urine 1.015 (1.003-1.022); Urobilinogen, Urine 2+ (Normal)
[2019-03-27 02:45] LABS: Appearance, Urine Cloudy (Clear); Bilirubin, Urine 1+ (Neg); Color, Urine Amber (P-Yellow)
[2019-03-27 02:46] LABS: Amorphous Light (0-Heavy); Bacteria Many /hpf; Red Blood Cells, Urine Not Seen /hpf (0-2); Squamous Epithelial Cells Rare /hpf (Few); Triple Phosphate Crystals Many /hpf
[2019-03-27 03:46] LABS: Adenovirus F 40/41 Not Detected (NOT DETECT); Astrovirus Not Detected (NOT DETECT); Campylobacter Sp Not Detected (NOT DETECT); Cryptosporidium Not Detected (NOT DETECT); Cyclospora Cayetanensis Not Detected (NOT DETECT); E. Coli O157 Not Detected (NOT DETECT); Entamoeba Histolytica Not Detected (NOT DETECT); Enteroaggregative E. coli-EAEC Not Detected (NOT DETECT); Enteropathogenic E. coli-EPEC Not Detected (NOT DETECT); Enterotoxigenic E. coli-ETEC Not Detected (NOT DETECT); Giardia Lamblia Not Detected (NOT DETECT); Norovirus GI/GII Not Detected (NOT DETECT); Plesiomonas Shigelloides Not Detected (NOT DETECT); Rotavirus A Not Detected (NOT DETECT); Salmonella Sp Not Detected (NOT DETECT); Sapovirus Not Detected (NOT DETECT); Shiga Toxin-prod E. coli-STEC Not Detected (NOT DETECT); Shigella/Enteroin E. coli-EIEC Not Detected (NOT DETECT); Vibrio Cholerae Not Detected (NOT DETECT); Vibrio Sp Not Detected (NOT DETECT); Yersinia Enterocolitica Not Detected (NOT DETECT)
[2019-03-27 04:09] LABS: BASOPHILS ABSOLUTE AUTO 0.03 K/mm3 (0.00-0.23); BASOPHILS PERCENT AUTO 0 % (0-2); EOSINOPHILS ABSOLUTE AUTO 0.04 K/mm3 (0.00-0.68); EOSINOPHILS PERCENT AUTO 0 % (0-6); Hematocrit 27.8 % (37.0-53.0); Hemoglobin 8.6 g/dL (13.5-17.5); IMMATURE GRAN ABSOLUTE AUTO 0.07 K/mm3 (0.00-0.10); IMMATURE GRAN PERCENT AUTO 1 % (0-1); LYMPHOCYTES ABSOLUTE AUTO 0.76 K/mm3 (0.84-5.20); LYMPHOCYTES PERCENT AUTO 7 % (21-46); MONOCYTES ABSOLUTE AUTO 1.26 K/mm3 (0.16-1.47); MONOCYTES PERCENT AUTO 11 % (4-13); Mean Corpuscular HGB 25.7 pg (26.0-34.0); Mean Corpuscular HGB Conc 30.9 g/dL (31.5-36.5); Mean Corpuscular Volume 83 fL (80-100); Mean Platelet Volume 8.7 fL (9.1-12.4); NEUTROPHILS ABSOLUTE AUTO 9.58 K/mm3 (1.96-9.15); NEUTROPHILS PERCENT AUTO 82 % (41-73); Platelet Count 369 K/mm3 (150-400); RDW Coefficient Variation 19.5 % (11.7-14.2); RDW Standard Deviation 59.1 fL (35.1-46.3); Red Blood Cell Count 3.35 M/mm3 (4.30-5.90); White Blood Cell Count 11.74 K/mm3 (4.00-11.30)
[2019-03-27 04:24] LABS: Anion Gap 4 mmol/L (6-16); Blood Urea Nitrogen 31 mg/dL (8-24); Bun/Creatinine Ratio 27.4 (12.0-20.0); CO2, Blood 31 mmol/L (21-32); Calcium, Blood 7.9 mg/dL (8.5-10.1); Chloride, Blood 102 mmol/L (98-108); Creatinine, Blood 1.13 mg/dL (0.60-1.20); Glomerular Filtration Rate >60 (60-); Glucose, Blood 110 mg/dL (70-99); Sodium, Blood 137 mmol/L (136-145)
--- NOTE | 2019-03-27 05:31 | NUR ---
Shift Summary Pt remains a/o, VSS, no apparent sign of distress. Pt remains breathing easy and unlabored, denies SOB, placed on 2L NC while sleeping d/t occasional desaturation, RT aware of NC application and involved in care. Pt on RA when not asleep. Pt's at bedside this night, involved in care. No changes since initial admission assessment. No events on tele. Pt denies CP/pressure, denies dizziness. Pt remains too weak to stand, urostomy patent and draining clear, yellow urine. Pain WNL per pt, denies need for pain medication manangement this shift. Pt repositioned to comfort, warm blankets provided with stated relief. NS infusing to LAC at 75ml/hr per orders. Pt with right upper chest wall mediport, not accessed at this time. SCD's in place and functioning per orders. Call light in reach, bed low and locked, pt calls appropriately to make needs known. Will continue monitoring and providing care per orders until day RN assumes care
--- NOTE | 2019-03-27 07:39 | NUR ---
NURSING PCU DAYSHIFT: Assumed care of pt at approx 0700. A/O, very pleasant, cooperative w/care. General weakness noted, slow to repspond physically and verbally, able to assist w/some ADL's. Skin is intact w/no breakdown noted. C/O 3-4/10 R lower back pain, treating w/repositioning and meds as ordered. Tele in place, ST w/HR 100-110, no c/o CP/pressure, SBP 90's, trace-1+ b/l pedal edema (L>R). L/S fairly cta t/o w/dim bases, O2 sat stable on RA, denies dypsnea, no noted cough, continuous bedside O2 monitoring. Abd SNT, BT hypoactive, no c/o nausea. Urostomy to R abd w/gravity drain to bag. FS PIV in LAC w/NS infusing at 75cc/hr along w/abx as scheduled. Spouse resting at bedside. Pt and s/o deny any current needs or questions regarding plan of care. Awaiting rounding from PMD. Call light in reach, cont to monitor for any changes.
--- NOTE | 2019-03-27 16:24 | NUR ---
Spiritual Care intial note: Met with Mr. Amanda and his , Ruby. Both report strong rios in God. This couple have lost a great deal in the past year due to each of their battles with cancer. It has been humbling for then to have to accept help. We spoke at length about this. They responded well to gentle spiritual direction around the gift of recieving. Isma appears weaker and slower to respond than previous hospitalization. It is unclear to me that either pt or spouse understand that current cancer treatment is not curative. Quality of life has begun to be an issue. This couple has lost nearly everything. Ruby admits to feeling emotionally and physically exhausted. Both were appreciaitve of prayer and affirmation of God's love and attention. They will benefit from a clear explaination of disease process so they can begin to make plans. Further Spiritual bereavement counselor and prayer will help as well. Title Search Manager Sevices will remain available.
--- NOTE | 2019-03-27 17:59 | NUR ---
NURSING PCU DAYSHIFT SUMMARY: Pt continues to have pain t/o the shift. Pain present in low back as well as ribs, treating w/repositioning, lidocaine patch, and PO meds. Pt does not tolerate repositioning well d/t discomfort. Respiratory and cardiac status unchanged. Seen by PMD, new d/o received. Spouse at bedside t/o shift. Assisted w/ADL's. Seen by PT/OT, xferred OOB to BSC w/two staff assist using FWW, remains weak and does not tolerate much exertion, spent majority of shift in bed. Pt denies any current questions/needs at this time. Call light in reach and pt continues to use appropriately. No s/s of acute distress, cont to monitor until rpt is given to NOC RN.
[2019-03-28 04:05] LABS: BASOPHILS ABSOLUTE AUTO 0.04 K/mm3 (0.00-0.23); BASOPHILS PERCENT AUTO 0 % (0-2); EOSINOPHILS ABSOLUTE AUTO 0.02 K/mm3 (0.00-0.68); EOSINOPHILS PERCENT AUTO 0 % (0-6); Hematocrit 27.4 % (37.0-53.0); IMMATURE GRAN ABSOLUTE AUTO 0.09 K/mm3 (0.00-0.10); IMMATURE GRAN PERCENT AUTO 1 % (0-1); LYMPHOCYTES ABSOLUTE AUTO 0.68 K/mm3 (0.84-5.20); LYMPHOCYTES PERCENT AUTO 6 % (21-46); MONOCYTES PERCENT AUTO 8 % (4-13); Mean Corpuscular HGB Conc 29.2 g/dL (31.5-36.5); Mean Platelet Volume 8.8 fL (9.1-12.4); NEUTROPHILS ABSOLUTE AUTO 10.17 K/mm3 (1.96-9.15); NEUTROPHILS PERCENT AUTO 85 % (41-73); Platelet Count 337 K/mm3 (150-400); RDW Coefficient Variation 19.6 % (11.7-14.2); RDW Standard Deviation 61.1 fL (35.1-46.3)
[2019-03-28 04:12] LABS: Mean Corpuscular Volume 86 fL (80-100)
[2019-03-28 04:26] LABS: Alanine Aminotransfer (ALT/SGP 13 U/L (12-78); Albumin, Blood 1.4 g/dL (3.4-5.0); Albumin/Globulin Ratio 0.3 (0.8-1.8); Alk Phos 185 U/L (50-136); Anion Gap 7 mmol/L (6-16); Aspartate Aminotrans (AST/SGOT 26 U/L (12-37); Bilirubin, Total 0.6 mg/dL (0.1-1.0); Blood Urea Nitrogen 23 mg/dL (8-24); Bun/Creatinine Ratio 27.3 (12.0-20.0); CO2, Blood 25 mmol/L (21-32); Calcium, Blood 8.1 mg/dL (8.5-10.1); Chloride, Blood 106 mmol/L (98-108); Creatinine, Blood 0.84 mg/dL (0.60-1.20); Globulin, Blood 4.7 g/dL (2.2-4.0); Glomerular Filtration Rate >60 (60-); Glucose, Blood 88 mg/dL (70-99); Potassium, Blood 4.2 mmol/L (3.5-5.5); Sodium, Blood 138 mmol/L (136-145); Total Protein, Blood 6.1 g/dL (6.4-8.2)
--- NOTE | 2019-03-28 04:35 | NUR ---
SHIFT SUMMARY: PATIENT AT BEDSIDE ALL SHIFT, PATIENT VSS, PATIENT DENIED NEED FOR PAIN MEDICATIONS THIS SHIFT. ENCOURAGED FOOD AND FLUIDS, PATIENT APPETITE STILL LOW. BED LOW AND LOCKED WITH CALL LIGHT WITHIN REACH.
[2019-03-28 10:56] LABS: International Normalized Ratio No Calc
[2019-03-28 10:57] LABS: Prothrombin Time Results >90.0 Sec (9.7-11.5)
[2019-03-28 11:14] LABS: Percent Saturation 22.2 % (20.0-50.0)
--- NOTE | 2019-03-28 13:58 | NUR ---
8275 PATIENT CAME FROM PCU. HE IS ALERT AND ORIENTED AND A 2 ASSIST TO BEDSIDE COMMODE. PATIENT IS VERY WEAK AND NEEDS ASSISTANCE WITH GETTING OUT OF BED. HE USES A FFW TO AMBULATE TO BSC. HE HAS NO SKIN ISSUES . NO TELE. PATIENT ON RA AND DOES NOT APPEAR TO BE IN ANY DISTRESS. HE IS ABLE TO COMMUNICATE HIS NEEDS. PT WORKING WITH PATIENT AT THIS TIME .
--- NOTE | 2019-03-28 14:30 | NUR ---
TRANSFER SUMMARY Pt to [place] [id number] at approx 1345 via bed with this RN and ROLL FORMING SUPERVISOR at bedside. Pt breating easy, even and unlabored on RA at time of transfer, infusing medication per orders into PIV x2 at LAC and RW. Pt without tele per orders, denies chest pain or pressure. Pt denies any SOB with transfer. Pt remains alert and oriented, able to make needs known as needed. All pt belongings with pt at transfer, pt's , Ruby aware of move and has been updated of room change.
--- NOTE | 2019-03-28 17:33 | NUR ---
PATIENT HAS SLEPT SINCE TRANSFER FROM PCU. HE IS ALERT AND ORIENTED WHEN AWAKE. NO COMPLAINTS OF PAIN, SOB, NV.
--- NOTE | 2019-03-29 06:23 | NUR ---
SHIFT SUMMARY UROSTOMY APPLIANCE AND BAG CHANGED TONIGHT, STOMA CLEANED. STOMA IS PINKY BEEFY RED, DRAINING FOUL ODOR DARK URINE WITH SEDIMENT. AZEVEDO BAG DRAINING UROSTOMY. 2 TAB OXYCODONE GIVEN FOR BACK PAIN D/T SPINAL FX AND CANCER c METS TO BONE. PT CANNOT TOLERATING LYING FLAT AND CANNOT REPOSITION SELF IN BED, PAINFUL FOR STAFF TO DO IT WELL. PT ALLOWED TO BE REPOSITIONED BY STAFF TONIGHT A FEW TIMES. AT BEDSIDE T/O NIGHT, VERY INVOLVED IN CARE AND SUPPORTIVE TO PT. WILL CONT TO MONITOR AND PROVIDE CARE UNTIL PRESUMED BY ONCOMING RN.
[2019-03-29 08:37] LABS: International Normalized Ratio 1.41; Prothrombin Time Results 14.5 Sec (9.7-11.5)
--- NOTE | 2019-03-29 18:12 | NUR ---
SHIFT SUMMARY PT WORKED WITH PYSICAL THERAPY THIS AM AND SAT IN THE CHAIR FOR A FEW MINUTES. COMPLAIN OF PAIN IN BACK AND MEDICATED PER EMAR. PT SLEPT FOR A LOT OF THE AFTERNOON AFTER RECEIVING PAIN MEDICATION. NO ACUTE CHANGES THIS SHIFT. THIS RN ENCOUARGED PT TO TURN TO SIDES TO ALLOW BUTTOCKS TO GET CIRCULATION. CALL LIGHT IN REACH. WILL CONTINUE TO MONITOR AND REPORT TO ONCOMING RN.
--- NOTE | 2019-03-30 05:20 | NUR ---
SHIFT SUMMARY PT HAS SLEPT THE MAJORITY OF THE NIGHT, VERY LOW MOTIVATION TO DO ANYTHING AND TAKES QUITE A BIT OF ENCOURAGEMENT FOR PT TO ALLOW STAFF TO REPOSITION IN BED. PT HAS PAIN FROM CANCER c METS AND SPINAL FRACTURES, SO ANY MOVEMENT IS 9/10 PAIN EVEN IF PREMEDICATED. HAS BEEN AT BEDSIDE T/O NIGHT. PT HAS NOT HAD A BM. ZOSYN ADMINISTERED Q6H PER EMAR. WILL CONT TO MONITOR AND PROVIDE CARE UNTIL PRESUMED BY ONCOMING RN.
[2019-03-30 08:31] LABS: BASOPHILS ABSOLUTE AUTO 0.03 K/mm3 (0.00-0.23); BASOPHILS PERCENT AUTO 0 % (0-2); EOSINOPHILS ABSOLUTE AUTO 0.02 K/mm3 (0.00-0.68); EOSINOPHILS PERCENT AUTO 0 % (0-6); Hematocrit 27.9 % (37.0-53.0); Hemoglobin 8.4 g/dL (13.5-17.5); IMMATURE GRAN ABSOLUTE AUTO 0.12 K/mm3 (0.00-0.10); IMMATURE GRAN PERCENT AUTO 1 % (0-1); LYMPHOCYTES PERCENT AUTO 9 % (21-46); MONOCYTES ABSOLUTE AUTO 0.99 K/mm3 (0.16-1.47); MONOCYTES PERCENT AUTO 10 % (4-13); Mean Corpuscular HGB 25.6 pg (26.0-34.0); Mean Corpuscular HGB Conc 30.1 g/dL (31.5-36.5); Mean Corpuscular Volume 85 fL (80-100); Mean Platelet Volume 8.6 fL (9.1-12.4); NEUTROPHILS ABSOLUTE AUTO 7.76 K/mm3 (1.96-9.15); NEUTROPHILS PERCENT AUTO 79 % (41-73); Platelet Count 362 K/mm3 (150-400); RDW Coefficient Variation 19.3 % (11.7-14.2); RDW Standard Deviation 59.5 fL (35.1-46.3); Red Blood Cell Count 3.28 M/mm3 (4.30-5.90); White Blood Cell Count 9.82 K/mm3 (4.00-11.30)
[2019-03-30 08:48] LABS: Alanine Aminotransfer (ALT/SGP 13 U/L (12-78); Albumin, Blood 1.6 g/dL (3.4-5.0); Albumin/Globulin Ratio 0.4 (0.8-1.8); Alk Phos 179 U/L (50-136); Anion Gap 8 mmol/L (6-16); Aspartate Aminotrans (AST/SGOT 18 U/L (12-37); Bilirubin, Total 0.8 mg/dL (0.1-1.0); Blood Urea Nitrogen 11 mg/dL (8-24); Bun/Creatinine Ratio 17.7 (12.0-20.0); CO2, Blood 25 mmol/L (21-32); Calcium, Blood 8.4 mg/dL (8.5-10.1); Chloride, Blood 106 mmol/L (98-108); Creatinine, Blood 0.62 mg/dL (0.60-1.20); Globulin, Blood 4.5 g/dL (2.2-4.0); Glomerular Filtration Rate >60 (60-); Glucose, Blood 104 mg/dL (70-99); Potassium, Blood 3.6 mmol/L (3.5-5.5); Sodium, Blood 139 mmol/L (136-145); Total Protein, Blood 6.1 g/dL (6.4-8.2)
[2019-03-30 08:50] LABS: International Normalized Ratio 1.33; Prothrombin Time Results 13.7 Sec (9.7-11.5)
--- NOTE | 2019-03-30 16:50 | NUR ---
SHIFT SUMMARY NO ACUTE CHANGES. PATIENT MEDICATED X 2 FOR PAIN THIS SHIFT. DENIES NAUSEA AND SHORTNESS OF BREATH. PATIENT UP 1 ASSIST TO BSC. NO BM SEVERAL DAYS, BOWEL CARE GIVEN. FAMILY AT BEDSIDE. PATIENT DECLINED OOB SEVERAL TIMES. PATIETN NAPPING AND VISITING WITH FAMILY. CALL LIGHT IN REACH.
--- NOTE | 2019-03-31 06:05 | NUR ---
SHIFT SUMMARY NO ACUTE CHANGES OVERNIGHT. PT HAS SLEEP WELL THROUGH THE NIGHT, AT BEDSIDE. PT HAS LOW MOTIVATION TO MOVE/AMBULATE, REQUIRES EXTRA ENCOURAGEMENT TO ALLOW FOR REPOSITIONING. REFUSED OOB. UROSTOMY TO RLQ DRAINING DARK YELLOW URINE, FOUL ODOR c SEDIMENT. PT HAD AN EXTRA LARGE BM LAST NIGHT DURING SHIFT CHANGE. DENIES PAIN OR DISCOMFORT. WILL CONT TO MONITOR AND PROVIDE CARE UNTIL PRESUMED BY ONCOMING RN.
[2019-03-31 10:13] LABS: International Normalized Ratio 1.7; Prothrombin Time Results 17.2 Sec (9.7-11.5)
--- NOTE | 2019-03-31 18:22 | NUR ---
Spiritual Care routine visit: Isma was alone in room and welcoming of conversation/prayer. He appears to be feeling better than he was last week. He tells me he beleives his cancer treatments are lengthening his life. He has a tremendous rios and enjoys talking about spirituality. He is sometimes slow to respond and appears slightly confused. But he is overall very pleasant and appreciaitive of prayer and spiritual encouragement. He expects to be home by next week. Isma appears in no emotional/spiritual distress. I will continue to visit as case-load permits.
--- NOTE | 2019-03-31 19:26 | NUR ---
SHIFT SUMMARY: NO ACUTE CHANGES TO REPORT THIS SHIFT. PT A&O; FLAT AFFECT; COOPERATIVE WITH CARE. PT HX CA c METS; MEDICATED FOR PAIN PER EMAR. PT & OT EVALS THIS SHIFT; PATIENT UP WITH 2-MAX ASSIST. IV ABX CONTINUING. REPORT GIVEN TO ONCOMING RN.
--- NOTE | 2019-04-01 05:35 | NUR ---
SHIFT SUMMARY NO ACUTE CHANGES TONIGHT. PT CONT TO HAVE VERY LOW MOTIVATION AND TAKES QUITE A BIT OF ENCOURAGEMENT TO PARTICIPATE IN CARE AND ALLOW FOR REPOSITIONING TO TAKE PLACE. MEDICATED FOR PAIN ONCE PER EMAR. UROSTOMY TO RLQ IS DRAINING URINE THAT IS DARK YELLOW, SEDIMENT, FOUL ODORED. AT BEDSIDE. VANCOMYCIN ADMINISTERED PER ORDERS. WILL CONT TO MONITOR AND PROVIDE CARE UNTIL PRESUMED BY ONCOMING RN.
[2019-04-01 10:28] LABS: International Normalized Ratio 2.22; Prothrombin Time Results 21.9 Sec (9.7-11.5)
--- NOTE | 2019-04-01 11:00 | NUR ---
[facility] clinical visit and assessment. This was my first meeting with Isma and his Ruby. 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 He was agreeable to talking about s/s management and advanced care planning this am. His primary source of pain at this time is mid back. He reports waking in pain, feeling rigid and unable to move. RN reports he is so stiff in upper back that they are unable to apply the lidoderm patch to his back until after he has had a dose of pain medication and his am care/bath. Pt is using prn dosing of 10 mg of oxycodone approx tid. He would be willing to try a long acting pm dose of an analgesic, pending Dr's input/approval to decrease severe pain upon waking. He had not experienced pain that required treatment up until approx two months earlier per pt and . He has also struggled with constipaiton lately. Educated pt/ on se of narcotics on bowels and strongly recommended a bowel regime that would include increased activity as able, fluids and fiber at home along with a daily laxative/stool softener. RN informed that pt would like MOM now. His last regular bm was on the . After s/s assessment and discussion I introduced conversation on advanced care planning with pt and 's permission. We discussed medical intervention, CPR, intubation, POLST and AD forms. After very good, lenghty conversation re medical decision making pt/ given blank POLST and AD to review. They were invited to contact me with any questions today. I also encouraged them to speak to their medical providers and PCP with any questions about what treatments he may continue to benefit from and tx that may cause him more suffering than benefit. Pt and were also given a booklet, "Hard Choices for [place] People". Pt expressed that he was trying to get as many good days out of his life as possible and to make every day count. He and his have rios in miracles and in god to heal. Isma states he is not sitting and waiting for a miracle but he's witnessed them and believes it is always possible. He understands that a cure for his metastatic cancer would be that kind of miracle. At the tail end of my visit was rounding. Case conferenced with pt's RN, , CM re: all of above. Pt is working with PT and OT but progress is very slow due to pain and fatigue. asked if pt was being discharged home today and I told her I was not aware of any dc orders today but would anticipate them later in the week. Will ask CM to confirm dc timeframe with pt/ later.
--- NOTE | 2019-04-01 17:52 | NUR ---
SHIFT SUMMARY: NO ACUTE CHANGES TO REPORT THIS SHIFT. PT A&O; CALM AND COOPERATIVE WITH CARE. FLAT AFFECT; LOW MOTIVATION. MEDICATED FOR PAIN PER EMAR. RLQ UROSTOMY; PATENT AND DRAINING. PT & OT FOLLOWING. WCTM.
--- NOTE | 2019-04-01 17:59 | NUR ---
Spiritual Care routine visit: Isma and his , Ruby, were in good spirits this afternoon. Isma had been up for a walk and both were thrilled with this progress. They are deeply appreciaitive of rios sharing and prayer. "It has been a good day" according to Ruby. I joined them in their happiness and affirmed their love for each other. We prayed together in gratitude. I will remain available.
--- NOTE | 2019-04-02 06:39 | NUR ---
SHIFT SUMMARY NO ACUTE CHANGES. PT WITH VERY LOW MOTIVATION AND DIFFICULTY WANTING TO PARTICIPATE IN CARE D/T PAIN AND STIFFNESS TO BACK. PT RECIEVED OXYCODONE XR TONIGHT FOR THE FIRST TIME TO SEE IF IT AIDS IN PROVIDING LONGER COVERAGE. PT REPORTS RELIEF. AT BEDSIDE. UROSTOMY TO RLQ PUTTING OUT DARK YELLOW URINE WITH THICK SEDIMENT AND FOUL ODOR. WILL CONT TO MONITOR AND PROVIDE CARE UNTIL PRESUMED BY ONCOMING RN.
[2019-04-02 09:54] LABS: International Normalized Ratio 2.55; Prothrombin Time Results 24.8 Sec (9.7-11.5)
--- NOTE | 2019-04-02 13:51 | NUR ---
Pt visit this afternoon. Pt is sitting in chair upon arrival and reports 5/10 pain. Pt finished working with PT approximately an hour prior to visit. Pt reports pain has improved since starting the new regimen. Pt reports his immediate goal is to regain enough independence where he can transfer independently. Pt reports working with PT and did well. No other concerns reported at this time. Spoke with Awa from PT and she reports Pt was able to work through much of session without too much pain. Palliative Care will remain available.
--- NOTE | 2019-04-02 17:56 | NUR ---
SHIFT SUMMARY OX4. SLOW TO RESPOND AT TIMES. INCREASED PAIN WITH ANY MOVEMENT. INCREASED PAIN MED DOSING FOR BETTER COVERAGE; PT TOLERATING WELL. SPOUSE AT BEDSIDE THROUGHOUT DAY AND ATTENTIVE. UP IN CHAIR FOR SEVERAL HOURS TODAY 1 PERSON ASSIST TO TRANSFER. COUMADIN. POSSIBLE DC TOMORROW WITH HOME HEALTH.
--- NOTE | 2019-04-03 05:42 | NUR ---
SHIFT SUMMARY PT HAS SLEPT WELL THROUGH THE NIGHT. MEDICATED THIS AM FOR PAIN WITH PRN OXYCODONE, 2 TABS. AT BEDSIDE. UROSTOMY DRAINING DARK, FOUL YELLOW URINE. PT CONT TO HAVE VERY LOW MOTIVATION AND REQUIRES HEAVY ENCOURAGEMENT FOR TURNS AND OOB. WILL CONT TO MONITOR AND PROVIDE CARE UNTIL PRESUMED BY ONCOMING RN.
[2019-04-03 08:40] LABS: International Normalized Ratio 2.97; Prothrombin Time Results 28.5 Sec (9.7-11.5)
[2019-04-03] MEDS ORDERED: LIDOCAINE PAIN1 EACH TOP (11:40)
[2019-04-03] MEDS ORDERED: MEGESTROL400 MG/10 PO (11:42)
[2019-04-03] MEDS ORDERED: GAVILAX17 GM PO (11:43)
[2019-04-03] MEDS ORDERED: OXYC10ER PO (11:45)
--- NOTE | 2019-04-03 12:24 | NUR ---
DISCHARGE PT IS A/O X3, RESPONSES SOMEWHAT SLOW, DELIBERATE. @ BEDSIDE. DR HAWK IN TO SEE THEM, STATE OK FOR D/C HOME TODAY. THEY STATE FEEL READY FOR D/C HOME. [facility] HAS BEEN ARRANGED. SCRIPTS FAXED TO [facility]/REQUEST. D/C INSTRUCT REVIEWED WITH PT/. CLINICAL PHLEBOTOMIST PT TO DRESS. UROSTOMY PATENT/DRNG. MARKET DEVELOPMENT ANALYST PROVIDE W/C ESCORT FROM HOSP. PT IS PLEASANT/APPRECIATIVE.
== END 2019-04-03 13:23 | disposition home health service (06) | DRG 872 ==
LOC: ER 19:12 → PCU 03-27 01:02 → MEDS 03-28 13:42 → ENPENDDIS 04-03 11:06 → MEDS 04-03 13:23
PROVIDERS: Emergency Medicine; Internal Medicine; Nurse Practitioner Acute Care; ADMIT Internal Medicine
DX: A41.9 Sepsis, unspecified organism (principal); E44.0 Moderate protein-calorie malnutrition; C79.51 Secondary malignant neoplasm of bone; N17.9 Acute kidney failure, unspecified; Z51.5 Encounter for palliative care; D63.8 Anemia in other chronic diseases classified elsewhere; Z79.01 Long term (current) use of anticoagulants; C67.9 Malignant neoplasm of bladder, unspecified; M54.5 Low back pain; G89.3 Neoplasm related pain (acute) (chronic); I10 Essential (primary) hypertension; R79.1 Abnormal coagulation profile; C61 Malignant neoplasm of prostate; K52.9 Noninfective gastroenteritis and colitis, unspecified; Z86.718 Personal history of other venous thrombosis and embolism; G62.9 Polyneuropathy, unspecified; E78.5 Hyperlipidemia, unspecified; F32.9 Major depressive disorder, single episode, unspecified; E86.0 Dehydration; Z91.81 History of falling; D64.9 Anemia, unspecified; B37.9 Candidiasis, unspecified; Z68.30 Body mass index [BMI] 30.0-30.9, adult
CPT/HCPCS: 0097U; 36415; 74176; 80048; 80053; 81001; 82728; 83540; 83550; 83605; 83690; 84443; 85025; 85610; 87040; 87077; 87086; 87186; 94762; 96361; 96365; 96375; 97110; 97116; 97162; 97166; 97530; 97535; 99285-25; J0696; J1170; J2405; J2543; J3370; J3420; J7030; J7050; J7120; P9046

== ENCOUNTER 2019-04-09 13:45 | Emergency (ER) | payer OTHER ==
[~2019-04-09] VITALS: Ht 177.8 cm; Wt 87.5 kg
[~2019-04-09 13:45] MED LIST changes: +GAVILAX17 GM PO; +LIDOCAINE PAIN1 EACH TOP; +MEGESTROL400 MG/10 PO; +METO10 PO; +OXYC10ER PO
[2019-04-09] MEDS ORDERED: FUROSEMIDE20 MG PO (14:13)
[2019-04-09] MEDS ORDERED: POTA10T PO (14:13)
[2019-04-09 16:03] LABS: BASOPHILS ABSOLUTE AUTO 0.03 K/mm3 (0.00-0.23); BASOPHILS PERCENT AUTO 0 % (0-2); EOSINOPHILS ABSOLUTE AUTO 0.03 K/mm3 (0.00-0.68); EOSINOPHILS PERCENT AUTO 0 % (0-6); Hematocrit 23.6 % (37.0-53.0); IMMATURE GRAN ABSOLUTE AUTO 0.09 K/mm3 (0.00-0.10); IMMATURE GRAN PERCENT AUTO 1 % (0-1); LYMPHOCYTES ABSOLUTE AUTO 0.75 K/mm3 (0.84-5.20); LYMPHOCYTES PERCENT AUTO 7 % (21-46); MONOCYTES ABSOLUTE AUTO 1.17 K/mm3 (0.16-1.47); MONOCYTES PERCENT AUTO 10 % (4-13); Mean Corpuscular HGB 25.5 pg (26.0-34.0); Mean Corpuscular HGB Conc 29.7 g/dL (31.5-36.5); Mean Corpuscular Volume 86 fL (80-100); Mean Platelet Volume 8.7 fL (9.1-12.4); NEUTROPHILS ABSOLUTE AUTO 9.47 K/mm3 (1.96-9.15); NEUTROPHILS PERCENT AUTO 82 % (41-73); Platelet Count 383 K/mm3 (150-400); RDW Coefficient Variation 18.5 % (11.7-14.2); Red Blood Cell Count 2.74 M/mm3 (4.30-5.90); White Blood Cell Count 11.54 K/mm3 (4.00-11.30)
[2019-04-09 16:25] LABS: Prothrombin Time Results 61.5 Sec (9.7-11.5)
[2019-04-09 16:27] LABS: Albumin, Blood 1.5 g/dL (3.4-5.0); Albumin/Globulin Ratio 0.3 (0.8-1.8); Bilirubin, Total 0.6 mg/dL (0.1-1.0); Bun/Creatinine Ratio 17.8 (12.0-20.0); Calcium, Blood 8.2 mg/dL (8.5-10.1); Creatinine, Blood 1.46 mg/dL (0.60-1.20); Globulin, Blood 4.6 g/dL (2.2-4.0); Potassium, Blood 5.4 mmol/L (3.5-5.5); Total Protein, Blood 6.1 g/dL (6.4-8.2)
[2019-04-09 16:29] LABS: International Normalized Ratio 6.92
== END 2019-04-09 17:11 | disposition home or self-care (01) ==
LOC: ER 13:45
PROVIDERS: Emergency Medicine
DX: C67.9 Malignant neoplasm of bladder, unspecified (principal); C78.7 Secondary malignant neoplasm of liver and intrahepatic bile duct; D64.9 Anemia, unspecified; S30.0XXA Contusion of lower back and pelvis, initial encounter; F32.9 Major depressive disorder, single episode, unspecified; E78.5 Hyperlipidemia, unspecified; I10 Essential (primary) hypertension; Z86.718 Personal history of other venous thrombosis and embolism; Z88.6 Allergy status to analgesic agent; Z88.8 Allergy status to other drugs, medicaments and biological substances; Z79.01 Long term (current) use of anticoagulants; Z79.899 Other long term (current) drug therapy; W19.XXXA Unspecified fall, initial encounter
CPT/HCPCS: 36415; 72170; 80053; 85025; 85610; 96374; 99285-25; J1170